=== PATIENT | female | born 1960 | race Hispanic/Latino ===

== ENCOUNTER 2021-11-10 23:01 | Emergency (ER) | payer BC, OTHER ==
--- NOTE | 2021-11-10 23:20 | ER ---
Nurse's Notes [facility] Name: Vaishnavi Cowan Age: 61 yrs Sex: Female : 1960 Arrival Date: 11/10/2021 Time: 23:06 Bed Waiting Private MD: Diagnosis: ED Course: 11/10 23:06 Patient arrived in ED. wm Administered Medications: No medications were administered Outcome: 23:19 Patient left the ED. ld1 Signatures: Liat Pierre RN RN ld1 Tomeka Hook
== END 2021-11-10 23:19 | disposition left against medical advice (07) ==
LOC: ER 23:01
DX: Z02.9 Encounter for administrative examinations, unspecified (principal)

== ENCOUNTER 2023-06-05 18:46 | Emergency (ER) | payer BC ==
--- NOTE | 2023-06-05 20:26 | RAD REPORT ---
EXAM DESCRIPTION: CT - Head Brain Wo Cont - 06/05/2023 8:16 pm CLINICAL HISTORY: HEADACHE COMPARISON: No comparisons TECHNIQUE: All CT scans are performed using dose optimization technique as appropriate and may inclu de automated exposure control or mA/KV adjustment according to patient size. FINDINGS: No intracranial hemorrhage, hydrocephalus or extra-axial fluid collection.No areas of brai n edema or evidence of midline shift. The paranasal sinuses and mastoids are clear. The calvarium is intact. IMPRESSION: No acute intracranial abnormality.
--- NOTE | 2023-06-05 20:51 | EDPHYS ---
Physician Documentation [facility] Name: Vaishnavi Cowan Age: 62 yrs Sex: Female : 1960 Arrival Date: 06/05/2023 Time: 18:46 Bed 6 Private MD: ED Physician Davi Dixon HPI: 06/05 19:25 This 62 yrs old Female presents to ER via Ambulatory with complaints of High cp Blood Pressure, Nausea. 19:25 The patient has elevated blood pressure and discovered this at home, with a home device.cp 19:25 Onset: The symptoms/episode began/occurred over past several days. Associated signs and cp symptoms: Pertinent positives: headache, intermittent chest pressure, Pertinent negatives: dizziness, dyspnea, vomiting, weakness. Severity of symptoms: At its worst the blood pressure was 190 mm Hg, in the emergency department the blood pressure is improved, 169 mm Hg. Patient denies HX of HTN. Reports unable to get appt with physician until next month. Historical: - Allergies: 19:09 Sulfa (Sulfonamide Antibiotics); cm10 19:09 Amoxicillin; cm10 - PMHx: 19:09 None; cm10 - Immunization history:: Adult Immunizations. - Social history:: Smoking status: Patient/guardian denies using tobacco, Stopped _ months ago 4. ROS: 19:30 Constitutional: Negative for body aches, chills, fever, poor PO intake. cp 19:30 Eyes: Negative for injury, pain, redness, and discharge. cp 19:30 Cardiovascular: Positive for chest pain, Negative for edema, palpitations. 19:30 Respiratory: Negative for cough, shortness of breath, wheezing. 19:30 Abdomen/GI: Positive for nausea, Negative for abdominal pain, vomiting, diarrhea, constipation. 19:30 Back: Negative for pain at rest, pain with movement. 19:30 Neuro: Positive for headache, Negative for altered mental status, numbness, syncope, weakness. 19:30 All other systems are negative. Exam: 19:35 Constitutional: The patient appears in no acute distress, alert, awake, cp non-diaphoretic, non-toxic, well developed, well nourished, overweight 19:35 Head/Face: Normocephalic, atraumatic. cp 19:35 Eyes: Periorbital structures: appear normal, Pupils: equal, round, and reactive to light and accomodation, Extraocular movements: intact throughout, Conjunctiva: normal, no exudate, no injection, Sclera: no appreciated abnormality, Lids and lashes: appear normal, bilaterally. 19:35 ENT: External ear(s): are unremarkable, Nose: is normal, Mouth: Lips: moist, Oral mucosa: pink and intact, moist, Posterior pharynx: is normal, airway is patent, no erythema, no exudate. 19:35 Neck: ROM/movement: is normal, is supple, without pain, no range of motions limitations. 19:35 Chest/axilla: Inspection: normal. 19:35 Cardiovascular: Rate: normal, Rhythm: regular, Edema: is not appreciated, JVD: is not appreciated. 19:35 Respiratory: the patient does not display signs of respiratory distress, Respirations: normal, no use of accessory muscles, no retractions, labored breathing, is not present, Breath sounds: are clear throughout, no decreased breath sounds, no stridor, no wheezing. 19:35 Abdomen/GI: Inspection: abdomen appears normal, Palpation: abdomen is soft and non-tender, in all quadrants. 19:35 Back: pain, is absent, ROM is normal. 19:35 Skin: no rash present. 19:35 Neuro: Orientation: to person, place \T\ time. Mentation: is normal, Cerebellar function: is grossly normal, Motor: moves all fours, strength is normal, Sensation: is normal. Vital Signs: 19:07 BP 169 / 101; Pulse 85; Resp 18; Temp 97.7(O); Pulse Ox 100% on R/A; Weight 95.25 kg; cm10 Height 5 ft. 5 in. ; Pain 4/10; 19:07 Body Mass Index 34.95 (95.25 kg, 165.1 cm) cm10 19:07 Pain Scale: Adult cm10 MDM: 19:17 Patient medically screened. cp 21:31 ED course: called and spoke with patient to inform her of CT results that returned WNL. cp Patient left ED prior to labs. Discussed with patient need for f/u with pcp to discuss elevated blood pressure. Patient instructed to return to ED worsening symptoms. 06/05 19:20 Order name: XRAY Chest (1 view) cp 06/05 19:20 Order name: CT Head Brain wo Cont; Complete Time: 20:49 06/05 20:49 Interpretation: Report reviewed. 06/05 19:20 Order name: Cardiac monitoring 06/05 19:20 Order name: EKG - Nurse/Tech 06/05 19:20 Order name: IV Saline Lock 06/05 19:20 Order name: Labs collected and sent 06/05 19:20 Order name: O2 Per Protocol 06/05 19:20 Order name: O2 Sat Monitoring Administered Medications: No medications were administered Disposition Summary: 06/05/23 20:50 Eloped Disposition: after being seen by provider cm10 Reason: unknown cm10 Signatures: Dispatcher [employer] EDMS Yosef Ashby PA PA cp Martinez, Clarissa RN RN cm10
--- NOTE | 2023-06-05 20:51 | ER ---
Nurse's Notes [facility] Name: Vaishnavi Cowan Age: 62 yrs Sex: Female : 1960 Arrival Date: 06/05/2023 Time: 18:46 Bed 6 Private MD: Diagnosis: Presentation: 06/05 19:07 Chief complaint: Patient states: blood pressure has been elevated over the last few cm10 days and has also had a headache. Pt states she does not have a diagnosis of high blood pressure. Coronavirus screen: Vaccine status: Patient reports receiving the 2nd dose of the covid vaccine. Client denies travel out of the [place] in the last 14 days. Ebola Screen: Patient denies travel to an Ebola-affected area in the 21 days before illness onset. No symptoms or risks identified at this time. Initial Sepsis Screen: Does the patient meet any 2 criteria? No. Patient's initial sepsis screen is negative. Does the patient have a suspected source of infection? No. Patient's initial sepsis screen is negative. Risk Assessment: Do you want to hurt yourself or someone else? Patient reports no desire to harm self or others. Onset of symptoms was June 05, 2023. 19:07 Method Of Arrival: Ambulatory cm10 19:07 Acuity: DANIELA 3 cm10 20:49 Note Pt was seen leaving by ER registration staff. cm10 Historical: - Allergies: 19:09 Sulfa (Sulfonamide Antibiotics); cm10 19:09 Amoxicillin; cm10 - PMHx: 19:09 None; cm10 - Immunization history:: Adult Immunizations. - Social history:: Smoking status: Patient/guardian denies using tobacco, Stopped _ months ago 4. Vital Signs: 19:07 BP 169 / 101; Pulse 85; Resp 18; Temp 97.7(O); Pulse Ox 100% on R/A; Weight 95.25 kg; cm10 Height 5 ft. 5 in. ; Pain 4/10; 19:07 Body Mass Index 34.95 (95.25 kg, 165.1 cm) cm10 19:07 Pain Scale: Adult cm10 ED Course: 18:47 Patient arrived in ED. mg5 19:09 Triage completed. cm10 19:10 Arm band placed on Patient placed in waiting room. cm10 19:12 Yosef Ashby PA is PHCP. cp 19:12 Davi Dixon MD is Attending Physician. cp 20:18 CT Head Brain wo Cont In Process Unspecified. EDMS 20:47 XRAY Chest (1 view) In Process Unspecified. EDMS 20:49 Patient's name was called from ER lobby. No response. Unable to locate patient. Will cm10 disposition as left without being seen by a provider. Administered Medications: No medications were administered Outcome: 20:50 Patient left the ED. cm10 Signatures: Dispatcher [employer] EDMS Yosef Ashby PA PA Lilibeth Macario, RN RN cm10 Negin Conde mg5
--- NOTE | 2023-06-05 21:19 | RAD REPORT ---
EXAM DESCRIPTION: RAD - Chest Single View - 06/05/2023 8:45 pm CLINICAL HISTORY: CHEST PAIN COMPARISON: CHEST SINGLE VIEW dated 06/11/2013; CHEST SINGLE VIEW dated 06/16/2011 FINDINGS: Lines: None. Lungs: No evidence of edema or pneumonia. Pleural: No significant pleural effusions or pneumothorax. Cardiac: The heart size is within normal limits. Mediastinum: Within normal limits. Bones: No acute fractures. Other: None IMPRESSION: No acute cardiopulmonary disease.
[2023-06-05 21:32] VITALS: BP 169/101; TEMP 97.7; O2SAT 100
== END 2023-06-05 20:50 | disposition left against medical advice (07) ==
LOC: ER 18:46
DX: I10 Essential (primary) hypertension (principal); R11.0 Nausea; Z88.1 Allergy status to other antibiotic agents; Z88.2 Allergy status to sulfonamides
CPT/HCPCS: 70450; 71045

== ENCOUNTER 2023-09-06 11:02 | Observation (INO) | payer BC ==
[2023-09-06] MEDS ORDERED: ONDANSETRON 4 MG (ODT) TAB ONE (11:44)
[2023-09-06 11:57] LABS: Hematocrit 43.6 % (36.0-45.0); MCV 87.5 fL (80-100); MPV 8.1 fL (7.6-11.3); Platelets 358 thou/uL (152-406); RBC Red Blood Cell Count 4.99 M/uL (3.86-4.86)
[2023-09-06 12:16] LABS: Bilirubin Total 1.1 mg/dL (0.2-1.0); Potassium 3.6 mEq/L (3.5-5.1); Protein, Total 8.3 g/dL (6.4-8.2)
[2023-09-06] MEDS ORDERED: NA CHLORIDE 0.9% 1,000 ML ONE (13:08)
--- NOTE | 2023-09-06 13:09 | RAD REPORT ---
EXAM DESCRIPTION: CT - Abdomen Pelvis W Contrast - 09/06/2023 12:29 pm CLINICAL HISTORY: Abd pain;Constipation COMPARISON: No comparisons TECHNIQUE: Thin cut axial CT imaging of the abdomen and pelvis was performed following intravenous a dministration of 100 mL Isovue 300. Multiplanar reformats were generated and reviewed. All CT scans are performed using dose optimization technique as appropriate and may include automated exposure control or mA/KV adjustment according to patient size. FINDINGS: No suspicious findings in the lung bases. The liver, spleen, and pancreas show no suspicious findings. Gallbladder shows multiple gallstones, s ome containing locules of gas. Small left adrenal nodules, measuring 12-13 millimeter, not well jose cterized. Symmetric renal function is seen with no hydronephrosis or suspicious renal mass. No dilated bowel loops or bowel wall thickening. No free air, free fluid or inflammatory stranding. N o hernia, mass or bulky lymphadenopathy. The urinary bladder is without significant finding. Small fi broid at the fundus, calcified. No suspicious bony findings. IMPRESSION: No acute intra-abdominal process. Incidental findings as above, including cholelithiasis and small left adrenal nodules. Please correla te for stability of the adrenal nodules with prior imaging if available, would consider further evalu ation by adrenal protocol CT or MRI.
--- NOTE | 2023-09-06 13:26 | ER ---
Nurse's Notes [facility] Name: Vaishnavi Cowan Age: 63 yrs Sex: Female : 1960 Arrival Date: 09/06/2023 Time: 11:02 Bed 16 Private MD: Diagnosis: Other cholelithiasis without obstruction;Nausea with vomiting, unspecified Presentation: 09/06 11:25 Chief complaint: Patient states: constipated and nauseated, last BM was 2 days ago, has iw been using stool softeners, also has been vomiting, feels dehydrated , no abd pain , has been on wegovy and phentermine. Coronavirus screen: At this time, the client does not indicate any symptoms associated with coronavirus-19. Ebola Screen: Patient negative for fever greater than or equal to 101.5 degrees Fahrenheit, and additional compatible Ebola Virus Disease symptoms Patient denies exposure to infectious person. Patient denies travel to an Ebola-affected area in the 21 days before illness onset. No symptoms or risks identified at this time. Initial Sepsis Screen: Does the patient meet any 2 criteria? No. Patient's initial sepsis screen is negative. Does the patient have a suspected source of infection? No. Patient's initial sepsis screen is negative. Risk Assessment: Do you want to hurt yourself or someone else? Patient reports no desire to harm self or others. Onset of symptoms was September 03, 2023. 11:25 Method Of Arrival: Ambulatory iw 11:25 Acuity: DANIELA 3 iw Historical: - Allergies: 11:27 Amoxicillin; iw 11:27 Sulfa (Sulfonamide Antibiotics); iw - PMHx: 11:27 Hypertensive disorder; iw - Immunization history:: Adult Immunizations unknown. - Family history:: not pertinent. - Social history:: Smoking status: unknown. - Hospitalizations: : No recent hospitalization is reported. Screenin:45 [facility] ED Fall Risk Assessment (Adult) Score/Fall Risk Level 0 - 2 = Low Risk. Abuse eh3 screen: Denies threats or abuse. Denies injuries from another. Nutritional screening: No deficits noted. Tuberculosis screening: No symptoms or risk factors identified. Assessment: 13:18 Reassessment: Dr. Conway discussing results and POC. 7 14:45 General: Appears in no apparent distress. uncomfortable, Behavior is cooperative. Pain: eh3 Complains of pain in abdomen. Neuro: Level of Consciousness is awake, alert, obeys commands, Oriented to person, place, time, situation. Cardiovascular: Capillary refill < 3 seconds Patient's skin is warm and dry. Respiratory: Airway is patent Respiratory effort is even, unlabored, Respiratory pattern is regular, symmetrical. GI: Abdomen is round non-distended, Reports constipation, nausea. Derm: Skin is pink, warm \T\ dry. Musculoskeletal: Circulation, motion, and sensation intact. 14:46 Reassessment: Pt moved to ER Room 16, placed in gown and awaiting Dr. Shah to 7 assess. 15:45 Reassessment: Patient appears in no apparent distress at this time. Patient and/or eh3 family updated on plan of care and expected duration. Pain level reassessed. Patient is alert, oriented x 3, equal unlabored respirations, skin warm/dry/pink. Vital Signs: 11:25 BP 146 / 114; Pulse 81; Resp 16; Temp 98.4; Pulse Ox 97% ; Weight 91.63 kg; Height 5 iw ft. 4 in. ; 14:45 BP 170 / 90; Pulse 84; Resp 16; Pulse Ox 100% on R/A; eh3 15:45 BP 184 / 94; Pulse 84; Resp 18; Pulse Ox 100% on R/A; eh3 11:25 Body Mass Index 34.67 (91.63 kg, 162.56 cm) iw ED Course: 11:04 Patient arrived in ED. mg5 11:15 Ryley Conway MD is Attending Physician. rn 11:27 Triage completed. iw 11:28 Arm band placed on. iw 11:44 Inserted saline lock: 22 gauge in right antecubital area, using aseptic technique. sm8 Blood collected. 12:31 CT Abd/Pelvis - IV Contrast Only In Process Unspecified. EDMS 13:24 Ryley Conway MD is Referral Physician. rn 13:25 Referral Physician role handed off by Ryley Conway MD rn 14:40 US Abdomen Limited In Process Unspecified. EDMS 14:45 Patient has correct armband on for positive identification. Placed in gown. Bed in low eh3 position. Call light in reach. Side rails up X2. Provided Education on: use of call raymond. Pulse ox on. NIBP on. 15:03 Karolyn Rausch CHRISTIN is Primary Nurse. eh3 15:29 Héctor Montejo MD is Hospitalizing Provider. rn 15:45 No provider procedures requiring assistance completed. IV is positional. Flushes easily eh3 and provides blood return, but does not allow antibiotic to infuse at ordered rate Patient admitted, IV remains in place. 15:55 Pardeep Conway MD is Hospitalizing Provider. rn 16:15 Inserted saline lock: 22 gauge in left antecubital area, using aseptic technique. eh3 Administered Medications: 11:31 Drug: Ondansetron PO 4 mg PO once Route: PO; iw 12:30 Follow up: Response: No adverse reaction eh3 12:58 Drug: NS 0.9% IV 1000 ml IV at 1 bolus Per protocol; 1000 mL bolus Route: IV; Rate: 1 jl7 bolus; Site: right antecubital; 14:20 Follow up: IV Status: Completed infusion; IV Intake: 1000ml ll1 15:35 Drug: Ciprofloxacin IVPB 400 mg 200 ml IVPB once over 60 mins Volume: 200 ml; Route: eh3 IVPB; Infused Over: 60 mins; Site: right antecubital; 17:30 Follow up: Response: No adverse reaction; IV Status: Completed infusion; IV Intake: eh3 200ml 16:25 Drug: metroNIDAZOLE IVPB 500 mg 100 ml IVPB at 200 ml/hr once over 30 mins Volume: 100 eh3 ml; Route: IVPB; Rate: 200 ml/hr; Infused Over: 30 mins; Site: left antecubital; 17:30 Follow up: Response: No adverse reaction; IV Status: Completed infusion; IV Intake: eh3 100ml Medication: 15:45 VIS not applicable for this client. eh3 Intake: 14:20 IV: 1000ml; Total: 1000ml. ll1 17:30 IV: 100ml; Total: 1100ml. eh3 17:30 IV: 200ml; Total: 1300ml. eh3 Outcome: 13:25 Discharge ordered by . rn 15:30 Decision to Hospitalize by Provider. rn 15:45 Admitted to ER Hold. Please see [facility] for further documentation. eh3 15:45 Condition: stable 15:45 Instructed on the need for admit, 20:58 Patient left the ED. eh3 21:13 Admitted to Tele accompanied by nurse, family with patient, via wheelchair, room 407, eh3 Report called to bedside report received by CHRISTIN Moura Signatures: Dispatcher [employer] Ladonna Townsend, RN RN iw Zoraida, MD MD christin Hedrick Jahala, RN RN jl7 Lucio Power RN RN 1 Karolyn Rausch, CHRISTIN RN 3 Carri Mora 8 Negin Conde mg5 Corrections: (The following items were deleted from the chart) 11:25 Chief complaint: Patient states: constipated and nauseated, last BM was 2 days iw ago, has been using stool softeners, also has been vomiting, feels dehydrated , no abd pain iw 11:25 Pulse 81bpm; Resp 16bpm; Pulse Ox 97%; Temp 98.4F; 91.63 kg; Height 5 ft. 4 in.; iw BMI: 34.6; iw 11:27 PMHx: wegovy; iw iw 16:39 15:45 Patient admitted, IV remains in place. eh3 eh3
--- NOTE | 2023-09-06 13:26 | EDPHYS ---
Physician Documentation [facility] Name: Vaishnavi Cowan Age: 63 yrs Sex: Female : 1960 Arrival Date: 09/06/2023 Time: 11:02 Bed 16 Private MD: ED Physician Ryley Conway HPI: 09/06 11:27 This 63 yrs old Female presents to ER via Ambulatory with complaints of rn Nausea, Constipation. 11:27 The patient presents to the emergency department with nausea. Onset: The rn symptoms/episode began/occurred 3 day(s) ago. Possible causes: unknown. The symptoms are aggravated by nothing. The symptoms are alleviated by nothing. Associated signs and symptoms: Pertinent positives: constipation, nausea, Pertinent negatives: fever, GI bleeding. Severity of symptoms: At their worst the symptoms were moderate in the emergency department the symptoms are unchanged. The patient has not experienced similar symptoms in the past. Patient reports constipation, not able to have a bowel movement unless using laxatives. Reports nausea. Denies abdominal pain. Patient taking phentermine as well as Wegovy. No blood in stool or hematemesis.. Historical: - Allergies: 11:27 Amoxicillin; iw 11:27 Sulfa (Sulfonamide Antibiotics); iw - PMHx: 11:27 Hypertensive disorder; iw - Immunization history:: Adult Immunizations unknown. - Family history:: not pertinent. - Social history:: Smoking status: unknown. - Hospitalizations: : No recent hospitalization is reported. ROS: 11:27 Constitutional: Negative for fever, chills, and weight loss, Neck: Negative for injury, rn pain, and swelling, Cardiovascular: Negative for chest pain, palpitations, and edema, Respiratory: Negative for shortness of breath, cough, wheezing, and pleuritic chest pain, Abdomen/GI: Positive for nausea and constipation Back: Negative for injury and pain, MS/Extremity: Negative for injury and deformity, Skin: Negative for injury, rash, and discoloration, Neuro: Negative for headache, weakness, numbness, tingling, and seizure, Exam: 11:27 Constitutional: This is a well developed, well nourished patient who is awake, alert, rn and in no acute distress. Ambulatory to room without difficulty or assistance ENT: Dry mucous membranes Cardiovascular: Regular rate and rhythm. No pulse deficits. Respiratory: No increased work of breathing, no retractions or nasal flaring. Abdomen/GI: Soft, nontender, no guarding or rebound MS/ Extremity: Pulses equal, no cyanosis. Neurovascular intact. Full, normal range of motion. Equal circumference. Neuro: Awake and alert, GCS 15 Vital Signs: 11:25 BP 146 / 114; Pulse 81; Resp 16; Temp 98.4; Pulse Ox 97% ; Weight 91.63 kg; Height 5 iw ft. 4 in. ; 14:45 BP 170 / 90; Pulse 84; Resp 16; Pulse Ox 100% on R/A; eh3 15:45 BP 184 / 94; Pulse 84; Resp 18; Pulse Ox 100% on R/A; eh3 11:25 Body Mass Index 34.67 (91.63 kg, 162.56 cm) iw MDM: 11:15 Patient medically screened. rn 13:24 Differential diagnosis: viral gastroenteritis, gastroenteritis, Constipation, furniture inspector side effect, dehydration. Data reviewed: vital signs, nurses notes, lab test result(s), radiologic studies, CT scan, and as a result, I will discharge patient. Counseling: I had a detailed discussion with the patient and/or guardian regarding the historical points, exam findings, and any diagnostic results supporting the discharge/admit diagnosis, lab results, radiology results, the need for outpatient follow up, to return to the emergency department if symptoms worsen or persist or if there are any questions or concerns that arise at home. Response to treatment: the patient's symptoms have markedly improved after treatment, and as a result, I will discharge patient. Special discussion: I discussed with the patient/guardian in detail that at this point there is no indication for admission to the hospital. It is understood, however, that if the symptoms persist or worsen the patient needs to return immediately for re-evaluation. ED course: No acute findings on work-up here. Incidental findings of adrenal nodules and cholelithiasis explained to patient. No evidence of bowel obstruction. I have personally reviewed all of the results, including but not limited to blood tests and imaging deemed necessary to safely discharge this patient at this time. All results given to and printed out for patient. I personally went over all the results with the patient and answered all questions. Patient will follow-up with PCP and or specialist as discussed. Return precautions given and understood.. 14:24 Management of patient was discussed with the following: Tuberculosis Specialist: Discussed case with rn Dr. Shah, will evaluate patient and take a look at the imaging.. 15:28 Consideration of Admission/Observation Patient was admitted/placed on observation. rn Escalation of care including admission/observation considered. I considered the following discharge prescriptions or medication management in the emergency department Medications were administered in the Emergency Department. See MAR. 15:28 ED course: Patient evaluated by Dr. Shah as well as imaging, recommends admission rn to hospitalist service, antibiotics, n.p.o. after midnight for possible early cholecystitis.. 09/06 11:24 Order name: CBC with Diff; Complete Time: 12:55 rn 09/06 11:24 Order name: CMP; Complete Time: 12:55 rn 09/06 11:24 Order name: Lipase; Complete Time: 12:55 rn 09/06 11:24 Order name: CT Abd/Pelvis - IV Contrast Only; Complete Time: 13:12 rn 09/06 13:51 Order name: US Abdomen Limited; Complete Time: 16:38 rn 09/06 11:24 Order name: IV Saline Lock; Complete Time: 11:44 rn 09/06 11:24 Order name: Labs collected and sent; Complete Time: 11:44 rn Administered Medications: 11:31 Drug: Ondansetron PO 4 mg PO once Route: PO; iw 12:30 Follow up: Response: No adverse reaction eh3 12:58 Drug: NS 0.9% IV 1000 ml IV at 1 bolus Per protocol; 1000 mL bolus Route: IV; Rate: 1 jl7 bolus; Site: right antecubital; 14:20 Follow up: IV Status: Completed infusion; IV Intake: 1000ml ll1 15:35 Drug: Ciprofloxacin IVPB 400 mg 200 ml IVPB once over 60 mins Volume: 200 ml; Route: eh3 IVPB; Infused Over: 60 mins; Site: right antecubital; 17:30 Follow up: Response: No adverse reaction; IV Status: Completed infusion; IV Intake: eh3 200ml 16:25 Drug: metroNIDAZOLE IVPB 500 mg 100 ml IVPB at 200 ml/hr once over 30 mins Volume: 100 eh3 ml; Route: IVPB; Rate: 200 ml/hr; Infused Over: 30 mins; Site: left antecubital; 17:30 Follow up: Response: No adverse reaction; IV Status: Completed infusion; IV Intake: eh3 100ml Disposition Summary: 09/06/23 15:30 Hospitalization Ordered Notes: Hospitalization Status: Inpatient Admission rn Condition: Stable(09/06/23 15:30) rn Problem: new(09/06/23 15:30) rn Symptoms: have improved(09/06/23 15:30) rn Bed/Room Type: Standard rn Provider: Pardeep Conway(09/06/23 15:55) rn Location: Telemetry/MedSurg (Inpatient)(09/06/23 20:15) cg Room Assignment: [facility](09/06/23 20:15) cg Diagnosis - Other cholelithiasis without obstruction(09/06/23 15:30) rn - Nausea with vomiting, unspecified rn Forms: - Medication Reconciliation Form rn - SBAR form rn - Leadership Thank You Letter rn Signatures: Dispatcher [employer] EDMS Ladonna Gomez, RN RN iw Zoraida, MD MD christin Hedrick Lee, FARE COLLECTOR-C FARE COLLECTOR-Cla1 Gilda Sesay, RN RN Ruchi Mcrae RN RN jl7 Pat Mobley Erin RN RN eh3 Lucio Power RN ll1 Corrections: (The following items were deleted from the chart) 11:28 11:27 PMHx: wegovy; [facility] 13:51 13:25 Home rn rn 13:51 13:25 new rn rn 13:51 13:25 have improved rn rn 13:51 13:25 Stable rn rn 13:51 13:25 Constipation, unspecified rn rn 13:51 13:25 Dehydration rn rn 13:51 13:25 Other cholelithiasis without obstruction rn rn 15:54 15:53 Wound Repair of 5cm ( 2.0in ) subcutaneous laceration to forehead. Distal rn neuro/vascular/tendon intact. Anesthesia: Regional Block with 3 mls of 1% lidocaine. Wound prep: Extensive cleansing by nurse by dc, Wound irrigation by nurse, Wound explored extensively. Skin closed with 6 5-0 Fast absorbing gut using interrupted sutures and sterile technique. Dressed with steri-strips. Patient tolerated well. rn 15:55 15:30 Héctor Montejo rn rn 18:09 15:30 Telemetry/MedSurg (Inpatient) rn eb 18:09 15:30 rn eb 20:15 18:09 [facility] ER HOLD eb cg 20:15 18:09 ERHOLD- eb cg
[2023-09-06] MEDS ORDERED: METRONIDAZOLE 500mg IVPB 500 MG/100 ML BAG IV ONE (15:47)
[2023-09-06] MEDS ORDERED: CIPROFLOXACIN 400mg IV 400 MG/200 ML BAG IV ONE (15:47)
--- NOTE | 2023-09-06 16:19 | P.HP ---
Certification for Inpatient Patient admitted to: Observation With expected LOS: <2 Midnights Patient will require the following post-hospital care: None Practitioner: I am a practitioner with admitting privileges, knowledge of patient current condition, hospital course, and medical plan of care. Services: Services provided to patient in accordance with Admission requirements found in Title 42 Section 412.3 of the Code of Federal Regulations Patient History Date of Service: 09/06/23 Reason for admission: Cholelithiasis, vomiting History of Present Illness: 63-year-old female with history of hypertension presents to the emergency department chief complaint of vomiting the past couple of days. Of note she does take Wegovy and phentermine at home, last dose of Wegovy was 2 to 3 weeks ago. She was evaluated in the emergency department her labs were significant for a T. bili of 1.[address] abdomen pelvis was performed with IV contrast which revealed gallbladder with multiple gallstones, some containing locules of gas, small left adrenal nodule measuring 12 to 13 mm. ED provider discussed case with general surgery who evaluated the patient recommends observation overnight n.p.o. at midnight for possible cholecystectomy. Allergies Penicillins Allergy (Intermediate, Verified 02/26/12 19:19) Itching/Hives/Rash Sulfa (Sulfonamide Antibiotics) [Sulfa(Sulfonamide Antibiotics)] Allergy (Intermediate, Verified 02/26/12 19:19) Itching/Hives/Rash amoxicillin Allergy (Unverified 04/26/15 05:27) Unknown SULFA (SULFONAMIDES) Allergy (Uncoded 04/26/15 05:27) Unknown - Past Medical/Surgical History -: Hypertension -: Psychosocial/ Personal History: Is employed as an insurance biller, lives at home with her - Family History Mother -: Cancer - Social History Smoking Status: Former smoker Alcohol use: No CD- Drugs: No Caffeine use: Yes Place of Residence: Home Review of Systems 10-point ROS is otherwise unremarkable Gastrointestinal: Nausea, Vomiting Physical Examination - Physical Exam General: Alert, In no apparent distress, Oriented x3 HEENT: Atraumatic, PERRLA Neck: No LAD Respiratory: Normal air movement Cardiovascular: Regular rate/rhythm Gastrointestinal: Non-distended Musculoskeletal: No tenderness Integumentary: No rashes Neurological: Normal speech, Normal strength at 5/5 x4 extr, Normal affect - Studies Laboratory Data (last 24 hrs) 09/06/23 09/06/23 11:40 11:40 WBC 6.50 Hgb 15.2 H Hct 43.6 Plt Count 358 Sodium 139 Potassium 3.6 BUN 15 Creatinine 0.96 Glucose 111 H Total Bilirubin 1.1 H AST 20 ALT 39 Alkaline Phosphatase 87 Lipase 43 Assessment and Plan - Plan Assessment: Symptomatic cholelithiasis with some stones containing small locules of gas Small left adrenal nodules Hypertension Plan: Symptomatic cholelithiasis with some stones containing small locules of gas Persistent nausea and vomiting for last 3 days General surgery evaluated patient n.p.o. after midnight for possible cholecystectomy Takes Wegovy and phentermine at home, last dose of Wegovy 2-3 weeks ago As needed antiemetics/pain medicine Continue empiric antibiotics Small left adrenal nodules Discussed finding with patient and family recommend outpatient work-up including possible CT adrenal protocol versus MRI with PCP Hypertension Continue home medications when appropriate DVT PPX: SCD Code status: Full Discharge Plan: Home Plan to discharge in: 24 Hours - Advance Directives Does patient have a Living Will: No Does patient have a Durable POA for Healthcare: No - Code Status/Comfort Care Code Status Assessed: Yes (Full code) Critical Care: No Time Spent Managing Pts Care (In Minutes): 55
--- NOTE | 2023-09-06 16:22 | RAD REPORT ---
EXAM DESCRIPTION: US - Abdomen Exam Limited - 09/06/2023 2:38 pm CLINICAL HISTORY: vomiting, eval for cholecystitis COMPARISON: Abdomen Pelvis W Contrast dated 09/06/2023 TECHNIQUE: Sonographic grayscale and color flow images of the right upper abdominal quadrant were obtained. FINDINGS: The gallbladder demonstrates echogenic shadowing gallstones. No pericholecystic fluid or g allbladder wall thickening. The common bile duct is normal measuring 5 mm. The liver demonstrates no findings of intrahepatic biliary dilatation. IMPRESSION: Cholelithiasis.
[2023-09-06] MEDS ORDERED: MORPHINE 2 MG/ML SYR IV PRN (18:45)
[2023-09-06] MEDS ORDERED: ONDANSETRON 4 MG/2 ML VIAL IV PRN (18:45)
[2023-09-06] MEDS: NA CHLORIDE 0.9% 1,000 ML IV SCH (18:45)
[2023-09-06 18:47] VITALS: BMI 34.7
--- NOTE | 2023-09-06 20:49 | CON ---
Date of Consultation: 09/06/2023 Reason For Service: Cholelithiasis and also gas bubble in the gallbladder of unknown origin. Indication: This is the case of a 63-year-old patient, who comes today to the ER with complaint of n ausea and constipation. Once the workup was done, a CAT scan was done, they found to have with cholelithiasis on the CAT scan, but also they have an incidental finding of some bubbles on the gallbladder. This patient has no right upper quadrant pain, no Drake sign, and no previous history of ERCPs or anything that justify the findings of air on the inside the gallbladder. She denies any trauma. Denies any dysuria, hematuria, hematochezia, melena. Denies any recent travel out of the [facility]. Denies any family member sick at home. The patient is taking phentermine as well as Wegovy. She does not recall her previous colonoscopies or upper endoscopy. Allergies: AMOXICILLIN, SULFA. Past Medical Problems: Hypertension. Social History: She does not smoke. She does not drink alcohol. Family History: Noncontributory. Review of Systems: See HPI. Physical Examination: General: Patient is awake and alert. HEENT: Pupils are equal and reactive. Anicteric. Neck: Supple. Chest: Clear. Abdomen: Soft and depressible. No guarding or rebound. No peritoneal signs. No Drake signs. Extremities: Good capillary refill. Vital Signs: Stable. Laboratory Data: Blood work shows WBC count of 6.5, hemoglobin of 15.2, and platelets of 358. Chlor talia is 106, total bilirubin of 1.1, lipase 43. AST and ALT within normal limits. Potassium 3.6. CT scan of the abdomen and pelvis interpreted by Dr. Crane, as cholelithiasis but also some gas bubble near the stones. The etiology of that is unknown. Ultrasound is still pending. Assessment: This is a female who comes to us with nausea and also constipation and then incidentally during the imaging found to have some gas bubble of unknown origin in the gallbladder. Right now, s he has no Drake sign, no abdominal pain, no leukocytosis, no fever or any other symptoms that sugges t ascending cholangitis. She has no previous workup. I do not see any previous endoscopy done recen tly. It does not look at least in the CT scan, at least there is no mention of any possible duodenal colic fistula. The patient was admitted to the hospital for observation, started on antibiotics. C ontrol her nausea and her constipation, and then we will proceed accordingly. We explained to her di fferent options that we have in the differential diagnosis and the possibility of laparoscopic, possi ble open cholecystectomy. IRISH/JOEL Voice ID: [id number] Report ID: [id number]
[2023-09-07] MEDS: METRONIDAZOLE 500mg IVPB 500 MG/100 ML BAG IV SCH ×2 (00:26→08:11)
[2023-09-07] MEDS: NA CHLORIDE 0.9% 1,000 ML IV SCH (05:54)
[2023-09-07 06:54] LABS: Absolute Lymphocytes (CBC) 1.6 K/uL (0.7-4.9); Hematocrit 38.7 % (36.0-45.0); Lymphocytes % 25.6 % (15.3-44.8); MCV 86.9 fL (80-100); MPV 7.9 fL (7.6-11.3); Platelets 337 thou/uL (152-406); RBC Red Blood Cell Count 4.45 M/uL (3.86-4.86)
[2023-09-07 07:14] LABS: Albumin 3.4 g/dL (3.4-5.0); Potassium 3.3 mEq/L (3.5-5.1)
[2023-09-07] MEDS: CIPROFLOXACIN 400mg IV 400 MG/200 ML BAG IV SCH ×2 (08:11)
[2023-09-07] MEDS ORDERED: KCL 20 MEQ/100 mL IVPB 20 MEQ/100 ML BAG IV SCH (09:00)
[2023-09-07 09:21] VITALS: BP 122/87; TEMP 97.4
[2023-09-07 09:24] VITALS: O2SAT 98
[2023-09-07] MEDS ORDERED: POTASSIUM 25 MEQ EFFERV TAB PO ONE (10:22)
--- NOTE | 2023-09-07 14:25 | P.DS ---
Admission Date: 09/06/23 Discharge Date: 09/07/23 Reason for Admission: Cholelithiasis, vomiting Brief History of Present Illness: 63-year-old female with history of hypertension presents to the emergency department chief complaint of vomiting the past couple of days. Of note she estrada s take Wegovy and phentermine at home, last dose of Wegovy was 2 to 3 weeks ago. She was evaluated in the emergency department her labs were significant for a T. bili of 1.[address] abdomen pelvis was performed with IV contrast which revealed gallbladder with multiple gallstones, some containing locules of gas, small left adrenal nodule measuring 12 to 13 mm. ED provider discussed case w ith general surgery who evaluated the patient recommends observation overnight n.p.o. at midnight for possible cholecystectomy. Hospital Course: Problem list Symptomatic cholelithiasis with some stones containing small locules of gas Small left adrenal nodules Hypertension Patient was admitted to the hospital for nausea/vomiting and cholelithiasis. Overnight she did well without pain/further vomiting. She was evaluated by general surgery who recommends outpatient follow up in one week and possible outpatient cholecystectomy, counseled on slowly advancing diet/low fat diet <Froilan Meyer - Last Filed: 09/07/23 14:23> Admission Date: 09/06/23 Discharge Date: 09/07/23 <Pardeep Conway - Last Filed: 09/07/23 14:38> Disposition: ROUTINE DISCHARGE Discharge Condition: GOOD Vital Signs/Physical Exam: Temp Pulse Resp BP Pulse Ox 97.4 F 78 14 122/87 98 09/07/23 08:00 09/07/23 08:00 09/07/23 08:00 09/07/23 08:00 09/07/23 08:00 General: Alert, In no apparent distress, Oriented x3 HEENT: Atraumatic, PERRLA, EOMI Neck: Supple, JVD not distended Respiratory: Clear to auscultation bilaterally, Normal air movement Cardiovascular: Regular rate/rhythm, Normal S1 S2 Gastrointestinal: Soft and benign, Non-distended Musculoskeletal: No tenderness Integumentary: No rashes Neurological: Normal speech, Normal tone, Normal affect Laboratory Data at Discharge: WBC 6.20 thou/uL (4.3-10.9) 09/07/23 06:24 Hgb 13.5 g/dL (12.0-15.0) D 09/07/23 06:24 Hct 38.7 % (36.0-45.0) 09/07/23 06:24 Plt Count 337 thou/uL (152-406) 09/07/23 06:24 Sodium 140 mEq/L (136-145) 09/07/23 06:24 Potassium 3.3 mEq/L (3.5-5.1) L 09/07/23 06:24 BUN 8 mg/dL (7-18) 09/07/23 06:24 Creatinine 0.83 mg/dL (0.55-1.02) 09/07/23 06:24 Glucose 99 mg/dL (74-106) 09/07/23 06:24 Total Bilirubin 1.0 mg/dL (0.2-1.0) 09/07/23 06:24 AST 18 U/L (15-37) 09/07/23 06:24 ALT 34 U/L (13-56) 09/07/23 06:24 Alkaline Phosphatase 75 U/L (45-117) 09/07/23 06:24 Lipase 43 U/L (13-75) 09/06/23 11:40 <Froilan Meyer - Last Filed: 09/07/23 14:23> Vital Signs/Physical Exam: Temp Pulse Resp BP Pulse Ox 97.4 F 78 14 122/87 98 09/07/23 08:00 09/07/23 08:00 09/07/23 08:00 09/07/23 08:00 09/07/23 08:00 Laboratory Data at Discharge: WBC 6.20 thou/uL (4.3-10.9) 09/07/23 06:24 Hgb 13.5 g/dL (12.0-15.0) D 09/07/23 06:24 Hct 38.7 % (36.0-45.0) 09/07/23 06:24 Plt Count 337 thou/uL (152-406) 09/07/23 06:24 Sodium 140 mEq/L (136-145) 09/07/23 06:24 Potassium 3.3 mEq/L (3.5-5.1) L 09/07/23 06:24 BUN 8 mg/dL (7-18) 09/07/23 06:24 Creatinine 0.83 mg/dL (0.55-1.02) 09/07/23 06:24 Glucose 99 mg/dL (74-106) 09/07/23 06:24 Total Bilirubin 1.0 mg/dL (0.2-1.0) 09/07/23 06:24 AST 18 U/L (15-37) 09/07/23 06:24 ALT 34 U/L (13-56) 09/07/23 06:24 Alkaline Phosphatase 75 U/L (45-117) 09/07/23 06:24 Lipase 43 U/L (13-75) 09/06/23 11:40 <Pardeep Conway - Last Filed: 09/07/23 14:38> Diet: Low fat Activity: Ad efren Time spent managing pt's care (in minutes): 35 <Froilan Meyer - Last Filed: 09/07/23 14:23> Physician Review: Patient Assessed, Agree with Above Assessment and Plan <Pardeep Conway - Last Filed: 09/07/23 14:38> Home Medications: Losartan Potassium [Cozaar*] 50 mg PO DAILY 09/06/23 Ondansetron [Zofran] 4 mg PO Q6H PRN #15 tab 09/07/23 New Medications: Ondansetron [Zofran] 4 mg PO Q6H PRN #15 tab PRN Reason: Nausea / Vomiting Physician Discharge Instructions: Patient was admitted to the hospital for nausea/vomiting and cholelithiasis. Overnight she did well without pain/further vomiting. She was evaluated by general surgery who recommends outpatient follow up in one week and possible outpatient cholecystectomy, counseled on slowly advancing diet/low fat diet. Followup: Rosario Singh DO, DO [Primary Care Provider] - 1-2 Weeks (call to schedule an appointment) Froylan Shah MD [ACTIVE - CAN ADMIT] - 1 Week (call to schedule an appointment)
--- NOTE | 2023-09-07 18:52 | PN ---
Date of Progress Note: 09/07/2023 Diagnosis: Constipation, gallstones, and also small air bubble near the gallstone. Etiology of that is unknown. Subjective: The patient is afebrile. No signs or symptoms of ascending cholangitis. She has no tom n in the right upper side or epigastric region. No nausea today. No fever. No jaundice. Vital sig ns stable. Laboratory Data: WBC count is normal at 6.2. Objective: Chest: Clear. Abdomen: Soft and depressible. No guarding or rebound. No Drake signs. Extremities: Good capillary refill. The patient would like to advance diet. I explained to her the differential diagnosis, although we d o not see any specific fistula at this moment to the gallbladder that cannot be completely ruled out and surgical intervention to be fixed. She has no recent manipulation of the common bile duct. She has no Drake sign at this moment. In that case, she wants to do this workup as an outpat ient and I am okay with that if she can tolerate diet. Follow up in my office this week if possible and see her audience coordinator for chronic constipation. IRISH/JOEL Voice ID: [id number] Report ID: [id number]
--- NOTE | 2023-09-07 19:37 | PN ---
Date of Progress Note: 09/07/2023 Diagnosis: Nausea, constipation, cholecystitis. Subjective: This is just a followup on the patient on the progress note after I discussed that with this patient and the primary doctors. The patient has once again no evidence of ascending cholangiti s. Right now, she has no abdominal pain. No guarding or rebound. No jaundice. No fever. Abdomen is benign. No Drake sign. Laboratory Data: Blood work reviewed with the patient. Plan: Once again follow up in my office in a week. She will be taking the antibiotics and we are go ing to continue the GI workup as an outpatient. She was recommended to check last EGD and colonoscop y. IRISH/JOEL Voice ID: [id number] Report ID: [id number]
== END 2023-09-07 14:59 | disposition home or self-care (01) ==
LOC: ER 11:02 → ERHOLD 16:09 → 4TH 20:44
PROVIDERS: ADMIT Hospitalist; ATTEND Hospitalist
DX: K80.20 Calculus of gallbladder without cholecystitis without obstruction (principal); R11.2 Nausea with vomiting, unspecified; I10 Essential (primary) hypertension; K59.00 Constipation, unspecified; E27.9 Disorder of adrenal gland, unspecified; Z88.1 Allergy status to other antibiotic agents; Z88.2 Allergy status to sulfonamides
CPT/HCPCS: 85025 ×2; 36415; 83690; 80053 ×2; 74177; 76705; 99285; Q9967; Q0162; J2405; J0744 ×2; J7030 ×3; J3480

== ENCOUNTER 2024-02-14 09:13 | Emergency (ER) | payer BC ==
[2024-02-14] MEDS ORDERED: ONDANSETRON 4 MG/2 ML VIAL ONE (10:12)
[2024-02-14] MEDS ORDERED: NA CHLORIDE 0.9% 1,000 ML ONE (10:12)
--- NOTE | 2024-02-14 10:35 | RAD REPORT ---
EXAM DESCRIPTION: US - Abdomen Exam Limited - 02/14/2024 10:19 am CLINICAL HISTORY: ABD PAIN COMPARISON: Abdomen Exam Limited dated 09/06/2023 TECHNIQUE: Sonographic grayscale and color flow images of the right upper abdominal quadrant were o btained. FINDINGS: The gallbladder demonstrates numerous echogenic shadowing calculi layering dependently. No pericholecystic fluid or gallbladder wall thickening. The common bile duct is normal measuring 3 mm. The liver demonstrates no findings of intrahepatic biliary dilatation. IMPRESSION: Cholelithiasis. No findings to suggest acute cholecystitis or biliary ductal dilation.
[2024-02-14 10:37] LABS: Absolute Lymphocytes (CBC) 1.2 K/uL (0.7-4.9); Absolute Monocytes 0.2 K/uL (0.1-1.3); Absolute Neutrophil 5.5 K/uL (1.8-8.0); Basophils % 0.7 % (0-1.3); Eosinophils % 0.4 % (0-4.4); Hematocrit 42.7 % (36.0-45.0); Hemoglobin 14.6 g/dL (12.0-15.0); Lymphocytes % 17.4 % (15.3-44.8); MCH 30.7 pg (27.0-35.0); MCHC 34.2 g/dL (32.0-36.0); MCV 89.7 fL (80-100); MPV 7.7 fL (7.6-11.3); Monocytes % 3.5 % (3.3-12.3); Nucleated Red Blood Cells % 0.2 % (0-0); Platelets 362 thou/uL (152-406); RBC Red Blood Cell Count 4.76 M/uL (3.86-4.86); Red Cell Distribution Width 14.7 % (12.1-15.2)
[2024-02-14 10:56] LABS: Albumin 3.8 g/dL (3.4-5.0); Albumin/Globulin Ratio 0.7 (1.1-1.8); Anion Gap 4.8 mEq/L (5.0-15.0); Bilirubin Total 0.7 mg/dL (0.2-1.0); Globulin 5.3 g/dL (2.3-3.5); Potassium 3.8 mEq/L (3.5-5.1); Protein, Total 9.1 g/dL (6.4-8.2); Troponin High Sensitivity 3.8 pg/mL (<58.9)
--- NOTE | 2024-02-14 11:03 | ER ---
Nurse's Notes [facility] Name: Vaishnavi Cowan Age: 63 yrs Sex: Female : 1960 Arrival Date: 02/14/2024 Time: 09:13 Bed 14 Private MD: Rosario Singh H Diagnosis: Cholelithiasis, vomiting Presentation: 02/13 09:34 Chief complaint: Patient states: she started vomiting clear, bitter liquid yesterday. ap3 patient denies any abdominal pain. Coronavirus screen: At this time, the client does not indicate any symptoms associated with coronavirus-19. Ebola Screen: No symptoms or risks identified at this time. Initial Sepsis Screen: Does the patient meet any 2 criteria? HR > 90 bpm. Does the patient have a suspected source of infection? No. Patient's initial sepsis screen is negative. Risk Assessment: Do you want to hurt yourself or someone else? Patient reports no desire to harm self or others. Onset of symptoms was February 13, 2024. 09:34 Method Of Arrival: Ambulatory ap3 09:34 Acuity: DANIELA 3 ap3 Triage Assessment: 09:36 General: Appears in no apparent distress. Behavior is calm, cooperative, appropriate ap3 for age. Pain: Denies pain. Neuro: Level of Consciousness is awake, alert, obeys commands, Oriented to person, place, time, situation. Cardiovascular: Patient's skin is warm and dry. Respiratory: Airway is patent Respiratory effort is even, unlabored, Respiratory pattern is regular, symmetrical. GI: Reports nausea, vomiting, Patient currently denies abdominal pain. Historical: - Allergies: 09:35 Amoxicillin; ap3 09:35 Sulfa (Sulfonamide Antibiotics); ap3 - PMHx: 09:35 Hypertensive disorder; ap3 - Immunization history:: Client reports receiving the 2nd dose of the Covid vaccine. - Infectious Disease History:: Denies. - Social history:: Smoking status: Patient denies any tobacco usage or history of. Screenin:36 Abuse screen: Denies threats or abuse. Nutritional screening: No deficits noted. ap3 Tuberculosis screening: No symptoms or risk factors identified. 10:15 [facility] ED Fall Risk Assessment (Adult) History of falling in the last 3 months, mb9 including since admission No falls in past 3 months (0 pts) Confusion or Disorientation No (0 pts) Intoxicated or Sedated No (0 pts) Impaired Gait No (0 pts) Mobility Assist Device Used No (0 pt) Altered Elimination No (0 pt) Score/Fall Risk Level 0 - 2 = Low Risk Oriented to surroundings, Maintained a safe environment, Educated pt \T\ family on fall prevention, incl call for assistance when getting out of bed. Assessment: 10:25 General: Appears in no apparent distress. Behavior is calm, cooperative. Pain: Denies mb9 pain. Neuro: Cardenas Agitation-Sedation Scale (RASS): 0 - Alert and Calm Level of Consciousness is awake, alert, obeys commands, Oriented to person, place, time, situation, Appropriate for age. Cardiovascular: Patient's skin is warm and dry. Respiratory: Airway is patent Respiratory effort is even, unlabored, Respiratory pattern is regular, symmetrical. GI: Abdomen is round non-distended, Bowel sounds present X 4 quads. Abd is soft and non tender X 4 quads. Reports nausea, vomiting. : No signs and/or symptoms were reported regarding the genitourinary system. EENT: No signs and/or symptoms were reported regarding the EENT system. Derm: Skin is pink, warm \T\ dry. Musculoskeletal: Range of motion: intact in all extremities. 11:10 Reassessment: Patient and/or family updated on plan of care and expected duration. Pain mb9 level reassessed. Patient is alert, oriented x 3, equal unlabored respirations, skin warm/dry/pink. Patient states feeling better. Patient states symptoms have improved. Vital Signs: 09:34 BP 154 / 88; Pulse 98; Resp 18; Temp 98.1; Pulse Ox 100% ; Weight 88.45 kg; Height 5 ap3 ft. 4 in. ; Pain 0/10; 11:09 BP 146 / 84; Pulse 84; Resp 18; Pulse Ox 100% on R/A; mb9 09:34 Body Mass Index 33.47 (88.45 kg, 162.56 cm) ap3 09:34 Pain Scale: Adult ap3 ED Course: 09:17 Patient arrived in ED. mr 09:17 Rosario Singh DO is Private Physician. mr 09:18 Heydi Prince MD is Attending Physician. sp3 09:35 Triage completed. ap3 09:36 Arm band placed on right wrist. ap3 10:10 Leeann Mesa, RN is Primary Nurse. mb9 10:15 Placed in gown. Bed in low position. Call light in reach. Side rails up X 1. Provided mb9 Education on: press call light if needing anything. Client placed on continuous cardiac and pulse oximetry monitoring. NIBP monitoring applied. casket assembler metal on. Door closed. Noise minimized. Warm blanket given. 10:21 US Abdomen Limited In Process Unspecified. EDMS 10:25 Missed attempt(s): 20 gauge in right antecubital area. Bleeding controlled, band aid mb9 applied, catheter tip intact. 10:32 Troponin High Sensitivity Sent. bc6 10:32 CBC with Diff Sent. bc6 10:32 CMP Sent. bc6 10:32 Lipase Sent. bc6 10:32 Initial lab(s) drawn, by me, sent to lab. EKG done, by ED staff, reviewed by Heydi Prince MD. Inserted saline lock: 20 gauge in left antecubital area, using aseptic technique. Blood collected. 10:35 No provider procedures requiring assistance completed. mb9 11:08 Froylan Shah MD is Referral Physician. sp3 11:10 IV discontinued, intact, bleeding controlled, No redness/swelling at site. Pressure mb9 dressing applied. Administered Medications: 10:41 Drug: NS 0.9% IV 1000 ml IV at 1 bolus Per protocol; 1000 mL bolus Route: IV; Rate: 1 mb9 bolus; Site: left antecubital; 11:10 Follow up: Response: No adverse reaction; IV Status: Completed infusion mb9 10:41 Drug: Ondansetron IVP 4 mg IVP once; over 2 minutes Route: IVP; Site: left antecubital; mb9 11:10 Follow up: Response: No adverse reaction mb9 Medication: 10:26 VIS not applicable for this client. mb9 Outcome: 11:03 Discharge ordered by . sp3 11:10 Discharged to home ambulatory, with family, mb9 11:10 Condition: stable 11:10 Discharge instructions given to patient, family, Instructed on discharge instructions, follow up and referral plans. Demonstrated understanding of instructions, follow-up care, medications, Prescriptions given X 1, 11:16 Patient left the ED. mb9 Signatures: Dispatcher [employer] EDLeeann Boswell [facility] Reg mr Leena Greer, LIBRADO RN ap3 Heydi Prince MD MD sp3 Leeann Mesa, LIBRADO RN mb9 Hailey Anna 6
--- NOTE | 2024-02-14 11:04 | EDPHYS ---
Physician Documentation [facility] Name: Vaishnavi Cowan Age: 63 yrs Sex: Female : 1960 Arrival Date: 02/14/2024 Time: 09:13 Bed 14 Private MD: Rosario Singh H ED Physician Heydi Prince HPI: 02/13 10:28 This 63 yrs old Female presents to ER via Ambulatory with complaints of sp3 Vomiting. 10:28 63-year-old female with history of hypertension, prior gallstones who has not had a sp3 cholecystectomy now presents to the ED with vomiting and occasional right upper quadrant pain but none currently. She states that her last episode of "gallbladder attack" did not involve any pain. She feels like this is similar in nature. She denies any lower abdominal pain, chest pain, shortness of breath, back pain, diarrhea, fever, URI symptoms, syncope, near syncope, or any other signs or symptoms on ROS at this time.. Historical: - Allergies: 09:35 Amoxicillin; ap3 09:35 Sulfa (Sulfonamide Antibiotics); ap3 - PMHx: 09:35 Hypertensive disorder; ap3 - Immunization history:: Client reports receiving the 2nd dose of the Covid vaccine. - Infectious Disease History:: Denies. - Social history:: Smoking status: Patient denies any tobacco usage or history of. ROS: 10:29 Constitutional: Negative for fever, chills, and weight loss, Eyes: Negative for injury, sp3 pain, redness, and discharge, ENT: Negative for injury, pain, and discharge, Neck: Negative for injury, pain, and swelling, Cardiovascular: Negative for chest pain, palpitations, and edema, Respiratory: Negative for shortness of breath, cough, wheezing, and pleuritic chest pain, Back: Negative for injury and pain, MS/Extremity: Negative for injury and deformity, Skin: Negative for injury, rash, and discoloration, Neuro: Negative for headache, weakness, numbness, tingling, and seizure, Psych: Negative for depression, anxiety, suicide ideation, homicidal ideation, and hallucinations, Allergy/Immunology: Negative for hives, rash, and allergies, Endocrine: Negative for neck swelling, polydipsia, polyuria, polyphagia, and marked weight changes, Hematologic/Lymphatic: Negative for swollen nodes, abnormal bleeding, and unusual bruising, 10:29 All other systems are negative, Exam: 10:29 Constitutional: This is a well developed, well nourished patient who is awake, alert, sp3 and in no acute distress. Head/Face: Normocephalic, atraumatic. Eyes: Pupils equal round and reactive to light, extra-ocular motions intact. Lids and lashes normal. Conjunctiva and sclera are non-icteric and not injected. Cornea within normal limits. Periorbital areas with no swelling, redness, or edema. ENT: Nares patent. No nasal discharge, no septal abnormalities noted. External auditory canals are clear. Oropharynx with no redness, swelling, or masses, exudates, or evidence of obstruction, uvula midline. Mucous membranes moist. Neck: Trachea midline, no thyromegaly or masses palpated, and no cervical lymphadenopathy. Supple, full range of motion without nuchal rigidity, or vertebral point tenderness. No Meningismus. Chest/axilla: Normal chest wall appearance and motion. Nontender with no deformity. No lesions are appreciated. Cardiovascular: Regular rate and rhythm with a normal S1 and S2. No gallops, murmurs, or rubs. Normal PMI, no JVD. No pulse deficits. Respiratory: Lungs have equal breath sounds bilaterally, clear to auscultation and percussion. No rales, rhonchi or wheezes noted. No increased work of breathing, no retractions or nasal flaring. Back: No spinal tenderness. No costovertebral tenderness. Full range of motion. Skin: Warm, dry with normal turgor. Normal color with no rashes, no lesions, and no evidence of cellulitis. MS/ Extremity: Pulses equal, no cyanosis. Neurovascular intact. Full, normal range of motion. Neuro: Awake and alert, GCS 15, oriented to person, place, time, and situation. Cranial nerves II-XII grossly intact. Motor strength 5/5 in all extremities. Sensory grossly intact. Cerebellar exam normal. Normal gait. Psych: Awake, alert, with orientation to person, place and time. Behavior, mood, and affect are within normal limits. 10:30 Abdomen/GI: No abdominal pain on palpation. Patient is currently nauseated and sp3 actively having dry heaving. No peritoneal signs otherwise the remainder of the abdomen including rebound or guarding., 10:32 ECG was reviewed by the Attending Physician. EKG demonstrates normal sinus rhythm at 78 sp3 bpm with normal intervals, normal QRS, normal axis, normal ST/T-segment's without evidence of acute ischemia. Vital Signs: 09:34 BP 154 / 88; Pulse 98; Resp 18; Temp 98.1; Pulse Ox 100% ; Weight 88.45 kg; Height 5 ap3 ft. 4 in. ; Pain 0/10; 11:09 BP 146 / 84; Pulse 84; Resp 18; Pulse Ox 100% on R/A; mb9 09:34 Body Mass Index 33.47 (88.45 kg, 162.56 cm) ap3 09:34 Pain Scale: Adult ap3 MDM: 09:37 Patient medically screened. sp3 10:31 Data reviewed: vital signs, nurses notes, old medical records, lab test result(s), EKG, sp3 radiologic studies. 10:32 ED course: 63-year-old female with vomiting and possible gallbladder disease. sp3 Differential diagnosis includes biliary pathology, pancreatitis, ACS, gastritis, among others. Workup will include EKG, laboratory values including troponin and LFTs, and ultrasound of the right upper quadrant. Disposition pending workup and patient course. Nausea will be controlled with ondansetron IV and normal saline will also be administered.. 11:01 ED course: Laboratory values are within normal limits and ultrasound demonstrates sp3 cholelithiasis without evidence of infection. We will safely discharge patient home with Zofran ODT as needed.. 02/13 09:39 Order name: CBC with Diff; Complete Time: 10:39 sp3 02/13 09:39 Order name: CMP; Complete Time: 11:00 sp3 02/13 09:39 Order name: Lipase; Complete Time: 11:00 sp3 02/13 09:39 Order name: Troponin High Sensitivity; Complete Time: 11:00 sp3 02/13 09:39 Order name: US Abdomen Limited; Complete Time: 10:39 sp3 02/13 09:39 Order name: IV Saline Lock; Complete Time: 10:35 sp3 02/13 09:39 Order name: Labs collected and sent; Complete Time: 10:35 sp3 02/13 09:39 Order name: EKG - Nurse/Tech; Complete Time: 10:25 sp3 Administered Medications: 10:41 Drug: NS 0.9% IV 1000 ml IV at 1 bolus Per protocol; 1000 mL bolus Route: IV; Rate: 1 mb9 bolus; Site: left antecubital; 11:10 Follow up: Response: No adverse reaction; IV Status: Completed infusion mb9 10:41 Drug: Ondansetron IVP 4 mg IVP once; over 2 minutes Route: IVP; Site: left antecubital; mb9 11:10 Follow up: Response: No adverse reaction mb9 Disposition Summary: 02/14/24 11:03 Discharge Ordered Notes: Location: Home sp3 Condition: Stable sp3 Diagnosis - Cholelithiasis, vomiting sp3 Followup: sp3 - With: Private Physician - When: Upon discharge from the Emergency Department - Reason: Continuance of care Followup: sp3 - With: Froylan Shah MD - When: Upon discharge from the Emergency Department - Reason: Continuance of care Discharge Instructions: - Discharge Summary Sheet sp3 - Cholelithiasis sp3 Forms: - Medication Reconciliation Form sp3 - Thank You Letter sp3 - Antibiotic Education sp3 - Prescription Opioid Use sp3 - Patient Portal Instructions sp3 - Leadership Thank You Letter sp3 Prescriptions: - ondansetron 8 mg Oral Tablet,disintegrating - take 1 tablet ORAL route every 12 hours; 20 tablet; Refills: 0, Product sp3 Selection Permitted Signatures: Dispatcher [employer] Leena James, RN RN ap3 Heydi Prince MD MD sp3 Leeann Mesa RN RN mb9 Corrections: (The following items were deleted from the chart) 09:39 09:39 Abdomen Limited+[email or web address] ordered. EDMS EDMS
[2024-02-14 11:43] VITALS: BP 146/84; TEMP 98.1; O2SAT 100
== END 2024-02-14 11:16 | disposition home or self-care (01) ==
LOC: ER 09:13
DX: K80.20 Calculus of gallbladder without cholecystitis without obstruction (principal); Z88.1 Allergy status to other antibiotic agents; Z88.2 Allergy status to sulfonamides
CPT/HCPCS: 85025; 36415; 84484; 83690; 80053; 76705; 96374; 99285; J2405; J7030; 93005